=== PATIENT | female | born 1990 | race African-American/Black ===

== ENCOUNTER 2021-12-23 04:47 | Inpatient (IN) ==
[2021-12-23] MEDS ORDERED: ONDANSETRON 4 MG/2 ML VIAL IV PRN ×2 (07:46→16:47)
[2021-12-23] MEDS ORDERED: TRANEXAMIC ACID 1,000 MG in SODIUM CHLORIDE 0.9% 100 ML IV PRN (07:46)
[2021-12-23] MEDS ORDERED: OXYTOCIN/LR 20 UNIT/1,000 ML BAG IV ONE ×3 (07:46→16:47)
[2021-12-23] MEDS ORDERED: LACTATED RINGERS 1,000 ML IV PRN (07:46)
[2021-12-23] MEDS ORDERED: METHYLERGONOVINE 0.2 MG/1 ML AMP IM PRN (07:46)
[2021-12-23] MEDS ORDERED: CARBOPROST TROMETHAMINE 250 MCG/ML AMP IM PRN (07:46)
[2021-12-23] MEDS ORDERED: miSOPROStoL 200 MCG TABLET RECTAL PRN (07:46)
[2021-12-23] MEDS ORDERED: AMPICILLIN INJ 2,000 MG in SODIUM CHLORIDE 0.9% 100 ML IV ONE (08:11)
[2021-12-23 08:13] LABS: Basophils % 0.2 % (0.0-0.8); Eosinophils % 0.2 % (0.00-10.9); Hematocrit 37.4 VOL% (35.7-47.0); Hemoglobin 11.9 GM/DL (12.0-16.0); Immature Granulocytes % 0.4 %; Immature Granulocytes Absolute 0.05 #; Lymphocytes # 1.7 10*3/uL (1.4-4.0); Lymphocytes % 15.3 % (21.3-54.2); Mean Corpuscular HGB Conc 31.8 GM/DL (32-36); Mean Corpuscular Volume 88.6 FL (87-102); Mean Platelet Volume 9.9 FL (9.6-12.0); Monocytes # 0.8 10*3/uL (0.11-0.8); Monocytes % 6.8 % (1.7-12.7); Neutrophils % 77.1 % (38.7-73.9); Platelet Count 202 T/CUMM (130-400); Red Blood Count 4.22 MC/CUMM (3.8-5.5); Red Cell Distribution Width 12.7 % (9.3-17.3); White Blood Count 11.3 T/CUMM (4-12)
[2021-12-23 08:29] LABS: Albumin 3.1 G/DL (3.4-5.0); Bilirubin,Total 0.8 MG/DL (0.20-1.00); Calcium 9.3 MG/DL (8.5-10.1); Osmolality,Calculated 270.7 MOS/KG (273-304); Potassium 3.4 MMOL/L (3.5-5.1); Total Protein 7.6 G/DL (6.4-8.2)
[2021-12-23 08:55] LABS: Anisocytosis Slight; Band Neutrophils 1 % (0-10); Lymphocytes 16 % (20-55); Macrocytosis Slight; Platelet Estimate Normal; Total Cells Counted 100
[2021-12-23] MEDS ORDERED: diphenhydrAMINE 50 MG/1 ML VIAL IV PRN ×2 (12:22)
[2021-12-23] MEDS ORDERED: ePHEDrine 50 MG/ML VIAL IV PRN (12:22)
[2021-12-23] MEDS ORDERED: PROMETHAZINE 25 MG/1 ML VIAL IM ONE (12:22)
[2021-12-23] MEDS ORDERED: hydrOXYzine HCL 25 MG/1 ML VIAL IM PRN (12:22)
[2021-12-23] MEDS ORDERED: NALOXONE 0.4 MG/ML VIAL IV PRN (12:22)
[2021-12-23] MEDS ORDERED: CITRIC ACID/SODIUM CITRATE 30 ML UDCUP PO ONE (12:23)
[2021-12-23] MEDS ORDERED: FAMOTIDINE 20 MG/2 ML VIAL IV ONE (12:23)
[2021-12-23] MEDS ORDERED: fentaNYL 2 MCG/ROPIV 0.2% EPID 100 ML EPIDURAL SCH (12:30)
[2021-12-23] MEDS ORDERED: AMPICILLIN INJ 1,000 MG in SODIUM CHLORIDE 0.9% 100 ML IV SCH (12:30)
[2021-12-23] MEDS ORDERED: ceFAZolin 2,000 MG/50 ML DUPLEX IV ONE (15:28)
[2021-12-23] MEDS ORDERED: buprenorphine HCL 0.3 MG/ML VIAL ONE (15:33)
[2021-12-23] MEDS ORDERED: fentaNYL 100 MCG/2 ML VIAL ONE (15:33)
[2021-12-23] MEDS ORDERED: LIDOCAINE MPF 2% /EPI 20 ML VIAL ONE (15:33)
[2021-12-23] MEDS ORDERED: ONDANSETRON 4 MG/2 ML VIAL ONE (15:34)
[2021-12-23] MEDS ORDERED: SODIUM CHLORIDE 0.9% 0 ML IV ONE (15:48)
[2021-12-23] MEDS ORDERED: TRANEXAMIC ACID 1,000 MG/10 ML VIAL ONE (15:48)
[2021-12-23] MEDS ORDERED: miSOPROStoL 200 MCG TABLET ONE (15:48)
[2021-12-23] MEDS ORDERED: METHYLERGONOVINE 0.2 MG/1 ML AMP ONE (15:48)
[2021-12-23] MEDS ORDERED: CARBOPROST TROMETHAMINE 250 MCG/ML AMP IM ONE (15:48)
[2021-12-23 16:26] LABS: Cord Venous Blood HCO3 22.4 MMOL/L; Cord Venous Blood PCO2 47.6 MMHG; Cord Venous Blood PO2 32.2
[2021-12-23] MEDS ORDERED: PHENYLEPHRINE 10 MG/1 ML VIAL IV ONE (16:43)
[2021-12-23] MEDS ORDERED: ACETAMINOPHEN 325 MG TABLET PO PRN (16:47)
[2021-12-23] MEDS ORDERED: RHO(D) IMMUNE GLOBULIN 300 MCG SYRINGE IM ONE (16:47)
[2021-12-23] MEDS ORDERED: SIMETHICONE CHEW 80 MG TABLET PO PRN (16:47)
[2021-12-23] MEDS ORDERED: HYDROmorphone 1 MG/1 ML SYRINGE IV PRN (16:55)
[2021-12-23] MEDS ORDERED: LACTATED RINGERS 1,000 ML IV SCH (17:00)
[2021-12-23] MEDS: ACETAMINOPHEN 500 MG TABLET PO SCH (20:21)
[2021-12-23] MEDS: DOCUSATE SODIUM 100 MG CAPSULE PO SCH (20:21)
[2021-12-23] MEDS: KETOROLAC 30 MG/1 ML VIAL IV SCH (23:18)
[2021-12-24] MEDS: ACETAMINOPHEN 500 MG TABLET PO SCH ×2 (01:51→08:34)
[2021-12-24] MEDS: KETOROLAC 30 MG/1 ML VIAL IV SCH ×2 (05:00→11:21)
[2021-12-24 06:09] LABS: Basophils % 0.3 % (0.0-0.8); Eosinophils # 0.1 10*3/uL (0.0-0.87); Eosinophils % 0.4 % (0.00-10.9); Hematocrit 32.5 VOL% (35.7-47.0); Hemoglobin 10.6 GM/DL (12.0-16.0); Immature Granulocytes % 0.3 %; Immature Granulocytes Absolute 0.04 #; Lymphocytes # 1.4 10*3/uL (1.4-4.0); Lymphocytes % 12.1 % (21.3-54.2); Mean Corpuscular HGB Conc 32.6 GM/DL (32-36); Mean Corpuscular Volume 87.8 FL (87-102); Mean Platelet Volume 10.5 FL (9.6-12.0); Monocytes # 0.9 10*3/uL (0.11-0.8); Monocytes % 7.5 % (1.7-12.7); Neutrophils % 79.4 % (38.7-73.9); Platelet Count 147 T/CUMM (130-400); Red Cell Distribution Width 12.6 % (9.3-17.3); White Blood Count 11.8 T/CUMM (4-12)
[2021-12-24] MEDS ORDERED: MULTIVITAMIN (PRENATAL) TABLET PO SCH (09:00)
[2021-12-24] MEDS: DOCUSATE SODIUM 100 MG CAPSULE PO SCH ×2 (09:23→21:48)
[2021-12-24] MEDS: MULTIVITAMIN (PRENATAL) TABLET PO SCH (09:23)
[2021-12-24] MEDS: ACETAMINOPHEN 500 MG TABLET PO PRN (18:21)
[2021-12-25] MEDS: IBUPROFEN 800 MG TABLET PO PRN ×3 (00:05→16:12)
[2021-12-25] MEDS: MULTIVITAMIN (PRENATAL) TABLET PO SCH (09:21)
[2021-12-25] MEDS: DOCUSATE SODIUM 100 MG CAPSULE PO SCH ×2 (09:21→22:12)
[2021-12-25] MEDS: ACETAMINOPHEN 500 MG TABLET PO PRN (12:57)
[2021-12-25] MEDS: MAGNESIUM HYDROXIDE SUSP 30 ML UDCUP PO PRN (16:12)
[2021-12-26] MEDS: IBUPROFEN 800 MG TABLET PO PRN (06:47)
[2021-12-26] MEDS: MAGNESIUM HYDROXIDE SUSP 30 ML UDCUP PO PRN (08:41)
[2021-12-26] MEDS: MULTIVITAMIN (PRENATAL) TABLET PO SCH (08:41)
[2021-12-26] MEDS: DOCUSATE SODIUM 100 MG CAPSULE PO SCH (08:41)
[2021-12-26 15:17] VITALS: BP 107/66
== END 2021-12-26 12:35 | disposition home or self-care (01) | DRG 788 ==
LOC: N.LDOUT 04:47 → N.LD 04:49 → N.OB 12-24 16:35
PROVIDERS: ADMIT Obstetrics & Gynecology; ATTEND Obstetrics & Gynecology
PROC: LDCSECT (ICD-10-PCS; 2021-12-23 15:30)